=== PATIENT | female | born 1985 | race American Indian/Alaskan Native ===

== ENCOUNTER 2017-12-17 23:53 | Emergency (ER) | payer SELFPAY ==
[2017-12-18] MEDS ORDERED: NACL 0.9% 1000 ML 1,000 ML IV ONE (00:26)
[2017-12-18 00:44] LABS: Basophils # (Auto) 0.1 K/mm3 (0.0-0.1); Basophils % (Auto) 1.1 % (0.0-1.8); Eosinophils # (Auto) 0.1 K/mm3 (0.0-0.4); Eosinophils % (Auto) 1.5 % (0.0-4.3); Hematocrit 37.4 % (30.3-42.9); Hemoglobin 12.5 gm/dl (10.1-14.3); Lymphocytes # (Auto) 3.4 K/mm3 (1.2-5.4); Lymphocytes % (Auto) 37.9 % (13.4-35.0); Mean Corpuscular HGB Conc 33 % (30-34); Mean Corpuscular Hemoglobin 29 pg (28-32); Mean Corpuscular Volume 86 fl (79-97); Monocytes # (Auto) 0.4 K/mm3 (0.0-0.8); Monocytes % (Auto) 4.4 % (0.0-7.3); Platelet Count 262 K/mm3 (140-440); Red Blood Count 4.37 M/mm3 (3.65-5.03); Red Cell Distribution Width 16.6 % (13.2-15.2)
[2017-12-18 00:46] VITALS: BP 159/96
[2017-12-18 01:13] LABS: Alanine Aminotransferase 14 units/L (7-56); Albumin 4.1 g/dL (3.9-5); BUN/Creatinine Ratio 9; Blood Urea Nitrogen 7 mg/dL (7-17); Calcium 9.1 mg/dL (8.4-10.2); Hemolysis Index 7
[2017-12-18] MEDS ORDERED: PERCOCET 5/325 PO ONE (01:25)
--- NOTE | 2017-12-18 01:57 | Emergency Department Report ---
ED Abdominal Pain HPI - General Chief Complaint: Abdominal Pain Stated Complaint: ABD PAIN,VOMITING,NAUSEA Time Seen by Provider: 12/18/17 01:15 Source: patient, family Mode of arrival: Ambulatory Limitations: No Limitations - History of Present Illness Initial Comments: Ms. Dolan is a healthy 32-year-old female who presents with a 1 month of abdominal pain. Started with nausea vomiting today. +sharp periumbilical suprapubic pain. No vaginal bleeding. +Possibility of . History of 2 previous miscarriages. MD Complaint: abdominal pain -: Gradual, month(s) (1) Location: periumbilical, suprapubic Radiation: none Severity: moderate Quality: cramping, sharp Consistency: constant Improves With: nothing Worsens With: nothing - Related Data Previous Rx's Medication Instructions Recorded Last Taken Type HYDROcodone/APAP 5-325 [[place] 1 each PO Q6HR PRN #10 tablet 12/18/17 Unknown Rx 5/325] Ibuprofen 800 mg PO QID PRN #15 tablet 12/18/17 Unknown Rx Allergies Allergy/AdvReac Type Severity Reaction Status Date / Time No Known Allergies Allergy Verified 12/18/17 01:16 ED Review of Systems ROS: Stated complaint: ABD PAIN,VOMITING,NAUSEA Other details as noted in HPI Comment: All other systems reviewed and negative Constitutional: denies: fever, malaise Respiratory: denies: cough Cardiovascular: denies: chest pain ED Past Medical Hx - Past Medical History Previous Medical History?: No - Surgical History Past Surgical History?: Yes Hx Cholecystectomy: Yes - Social History Smoking Status: Current Every Day Smoker Substance Use Type: None - Medications Home Medications: Home Medications Medication Instructions Recorded Confirmed Last Taken Type HYDROcodone/APAP 5-325 [[place] 1 each PO Q6HR PRN #10 tablet 12/18/17 Unknown Rx 5/325] Ibuprofen 800 mg PO QID PRN #15 tablet 12/18/17 Unknown Rx ED Physical Exam - General Limitations: No Limitations General appearance: alert, in no apparent distress - Head Head exam: Present: atraumatic, normocephalic - Eye Eye exam: Present: normal appearance - ENT ENT exam: Present: mucous membranes moist - Neck Neck exam: Present: normal inspection. Absent: tenderness, meningismus - Respiratory Respiratory exam: Present: normal lung sounds bilaterally. Absent: respiratory distress, wheezes, rales, rhonchi - Cardiovascular Cardiovascular Exam: Present: regular rate, normal rhythm, normal heart sounds. Absent: systolic murmur, diastolic murmur, rubs, gallop - GI/Abdominal GI/Abdominal exam: Present: soft, normal bowel sounds. Absent: distended, tenderness, guarding, rebound - Extremities Exam Extremities exam: Present: normal inspection - Back Exam Back exam: Present: normal inspection - Neurological Exam Neurological exam: Present: alert, oriented X3 - Psychiatric Psychiatric exam: Present: normal affect, normal mood - Skin Skin exam: Present: warm, dry, intact, normal color. Absent: rash ED Course Vital Signs 12/18/17 00:16 Temperature 99.4 F Pulse Rate 100 H Respiratory 18 Rate Blood Pressure 159/96 O2 Sat by Pulse 96 Oximetry ED Medical Decision Making - Lab Data Result diagrams: 12/18/17 00:31 12/18/17 00:31 - Radiology Data Radiology results: report reviewed Hemorrhagic ovarian cyst - Medical Decision Making Pelvic pain due to hemorrhagic ovarian cysts, no tenderness to indicate peritonitis such as appendicitis. Prescriptions for [place] ibuprofen. Referral to outside clinic Critical care attestation.: If time is entered above; I have spent that time in minutes in the direct care of this critically ill patient, excluding procedure time. ED Disposition Clinical Impression: Ovarian cyst, Pelvic pain Disposition: [id number] TO HOME OR SELFCARE Is pt being admited?: No Does the pt Need Aspirin: No Condition: Stable Instructions: Abdominal Pain (ED), Ovarian Cyst (ED) Prescriptions: HYDROcodone/APAP 5-325 [[place] 5/325] 1 each PO Q6HR PRN #10 tablet PRN Reason: Pain Ibuprofen 800 mg PO QID PRN #15 tablet PRN Reason: Pain , Severe (7-10) Referrals: [facility] [Outside] - 3-5 Days Forms: Work/School Release Form(ED)
[2017-12-18 02:30] LABS: Bilirubin,Urine NEG (Negative); Blood,Urine NEG (Negative); Color,Urine Yellow (Yellow); Protein,Urine <15 mg/dL mg/dL (Negative)
[2017-12-18 02:31] LABS: Bacteria,Urine 2+ /HPF (Negative); Mucus,Urine FEW /HPF
--- NOTE | 2017-12-18 03:37 | Ultrasound Report ---
FINAL REPORT PROCEDURE: US TRANSVAGINAL TECHNIQUE: Real-time transvaginal sonography in multiple planes of the pelvis was performed with image documentation. This examination was performed without Doppler. Vascular abnormalities, including ovarian torsion, will not be detectable without Doppler evaluation. CPT 45837 HISTORY: Pelvic pain COMPARISON: No prior studies are available for comparison. FINDINGS: UTERUS Size: 8.4 x 4.3 x 4.7 cm. Endometrial thickness: 7.6 mm. There are multiple tiny cysts in the endometrium at the lower uterine segment. There is no fluid collection or mass. Orientation: anteverted. Cervix: Normal. Fibroids/masses: None. RIGHT Ovary: 3.4 x 4.1 x 3 cm. Appearance: There is a 2.4 centimeter solid appearing masslike area in the right ovary which could be hemorrhagic cyst. There is a 1 centimeters simple cyst.. LEFT Ovary: 4.5 x 2.3 x 3.6 cm. Appearance: Normal. Pelvic fluid: None. Other: None. IMPRESSION: There are multiple tiny cysts in the endometrium at the lower uterine segment. There is no fluid collection or mass. There is a 2.4 centimeter solid appearing masslike area in the right ovary which could be hemorrhagic cyst. There is an adjacent 1 centimeters simple cyst.. Left ovary is unremarkable. There is no free pelvic fluid. .
--- NOTE | 2017-12-18 12:09 | Ultrasound Report ---
FINAL REPORT EXAM: US PELVIC COMPLETE HISTORY: pelvic pain TECHNIQUE: Grayscale and color doppler ultrasound imaging of the pelvis was performed transabdominally. PRIORS: None. FINDINGS: Uterus: The uterus is difficult to visualize although measures approximately 6.6 x 3.2 x 5.1 centimeters. Endometrium: The endometrium was not seen. Ovaries: The ovaries were not seen. Free fluid: None. IMPRESSION: Nonvisualized ovaries. Poor visualization of the uterus.
== END 2017-12-18 04:34 | disposition home or self-care (01) ==
LOC: ED 23:53
DX: N83.201 Unspecified ovarian cyst, right side (principal); F17.200 Nicotine dependence, unspecified, uncomplicated; Z90.49 Acquired absence of other specified parts of digestive tract
CPT/HCPCS: 36415; 76830; 76856; 80053; 81001; 84702; 85025; 99284